=== PATIENT | male | born 1965 | race African-American/Black ===

== ENCOUNTER 2017-12-22 18:18 | Emergency (ER) | payer MEDICARE, OTHER ==
[~2017-12-22] VITALS: Ht 172.7 cm; Wt 68.0 kg
[2017-12-22] MEDS ORDERED: CARBAMAZEPINE200 M4 ORAL (18:25)
[2017-12-22] MEDS ORDERED: UNOBMED (18:25)
[2017-12-22] MEDS ORDERED: DEPAKOTE ER250 MG ORAL (18:25)
[2017-12-22] MEDS ORDERED: ZYPREXA10 MG ORAL (18:25)
[2017-12-22] MEDS ORDERED: LORazepam Inj 2mg/ml 1ml IV ONE ×2 (18:30→20:00)
[2017-12-22 18:56] LABS: HEMATOCRIT 41.2 % (42.0-52.0); HEMOGLOBIN 13.4 G/DL (14.2-18.0); MEAN CORPUSCULAR VOLUME 101 FL (80-99); PLATELET COUNT 173 K/UL (150-450); RED BLOOD COUNT 4.08 M/UL (4.70-6.10); RED CELL DISTRIBUTION WIDTH 12.9 % (11.6-14.8); WHITE BLOOD COUNT 7.9 K/UL (4.8-10.8)
--- NOTE | 2017-12-22 19:06 | Emergency Room Report ---
History of Present Illness General Chief Complaint: Seizure Source: EMS Present Illness HPI 52-year-old male presents ED for evaluation. Per EMS patient had a seizure at home. Witnessed by sister. Patient was on the floor. No head injury. Last for 2-3 minutes. Upon arrival patient is post ictal. Lethargic. Patient has psychiatric history and history of seizures. Takes Tegretol and Depakote. No to provide any additional history at this time. No signs of distress. No other aggravating relieving factors. No other associated symptoms Allergies: Coded Allergies: No Known Allergies (Unverified , 12/22/17) Patient History Past Medical History: seizures, psych hx Past Surgical History: none Pertinent Family History: none Social History: Denies: smoking, alcohol use, drug use Immunizations: UTD Reviewed Nursing Documentation: PMH: Agreed, PSxH: Agreed Nursing Documentation-PMH History Of Psychiatric Problem: Yes - Unable to access psych hx. Hx Seizures: Yes Review of Systems All Other Systems: negative except mentioned in HPI Physical Exam Vital Signs Date Time Temp Pulse Resp B/P (MAP) Pulse Ox O2 Delivery O2 Flow Rate FiO2 12/22/17 18:11 98.9 114 20 132/83 100 Room Air 99.0 12/22/17 18:25 2.0 95 Sp02 EP Interpretation: reviewed, normal General Appearance: no apparent distress, Postictal Head: normocephalic Eyes: bilateral eye normal inspection, bilateral eye PERRL ENT: hearing grossly normal Neck: normal inspection Respiratory: chest non-tender, lungs clear, normal breath sounds, speaking full sentences Cardiovascular #1: regular rate, rhythm, no edema Gastrointestinal: normal bowel sounds, non tender, soft, non-distended, no guarding, no rebound Rectal: deferred Genitourinary: no CVA tenderness Musculoskeletal: normal inspection Neurologic: motor weakness - not moving LUE and LLE, other - postictal Psychiatric: other - postictal Skin: normal inspection Lymphatic: normal inspection Procedures Critical Care Time Critical Care Time i. I feel this is a highly complex case requiring extensive working including EKG/Rhythm strip, Xray/CT/US, Blood/urine lab work, repeat exams while in ED, and administration of strong opiates/narcotics for pain control, admission to hospital or close patient follow up. Total time: 30 min bedside evaluation and treatment excludes procedures (EKG). Reason for critical care: Altered, seizure, left sided weakness Possible complications: hypotension, hypertension, ND, shock, arrhythmias, metabolic acidosis, end organ damage, respiratory failure. Interventions: Labs, IV fluids, Ativan, Depakote. CT head. Consultation with stroke team at [facility]. Rectal aspirin. Course: Patient presenting with altered middle status status post seizure. History of seizure. Depakote and Tegretol level subtherapeutic. A call greater than 218. Patient given Ativan. Patient started showing twitching on the right side but no activity on the left side. CT head shows possible right MCA thrombus concerning for stroke. Unknown last well time. Given rectal aspirin. Protecting airway. Will be transferred to [facility] Consultations: nursing staff, EMS, family Performed by: Dr Clemons Tolerated well condition = critical j. because of unstable vital signs this patient had a condition that could potentially threaten life or limb. I feel this is a critical patient who required my full attention while patient was considered critical. Total Critical Care Time excluding procedures was greater than 35 minutes Medical Decision Making Diagnostic Impression: Primary Impression: Seizure disorder Additional Impressions: CVA (cerebral vascular accident) Qualified Codes: I63.311 - Cerebral infarction due to thrombosis of right middle cerebral artery Alcohol intoxication Qualified Codes: F10.921 - Alcohol use, unspecified with intoxication delirium ER Course Hospital Course 52-year-old male presents ED with lethargy, post ictal after seizure. History of seizure Differential diagnoses include: ND/unstable angina, SVT/Vtach/AFib, CVA/TIA Clinical course Patient placed on stretcher. on school lunch monitor. After initial history and physical I ordered labs, IVFs, ativan labs reviewed- electrolytes ok, no leukocytosis, hb/hct stable, ETOH > 200, depakote and tegretol levels subtherapeutic Given Depakote IV Patient showing twitching activity of his right upper lower extremities. No activity on the left. Possible Davie's paralysis. However CT head ordered CT brain - concern for thrombus in the right MCA Discussed case with [facility]. Given unknown last well-known time not a candidate for thrombolytic therapy. Patient protecting airway therefore patient will not be intubated Given rectal aspirin EKG-normal sinus rhythm no acute ischemic changes interpreted by me I. I feel this is a highly complex case requiring extensive working including EKG/Rhythm strip, Xray/CT/US, Blood/urine lab work, repeat exams while in ED, and administration of strong opiates/narcotics for pain control, admission to hospital or close patient follow up. Diagnosis - seizure disorder, alcohol intoxication, CVA Transfer to [facility] in critical condition Labs Test 12/22/17 18:15 12/22/17 18:45 12/22/17 19:05 White Blood Count 7.9 K/UL (4.8-10.8) Red Blood Count 4.08 M/UL (4.70-6.10) Hemoglobin 13.4 G/DL (14.2-18.0) Hematocrit 41.2 % (42.0-52.0) Mean Corpuscular Volume 101 FL (80-99) Mean Corpuscular Hemoglobin 32.7 PG (27.0-31.0) Mean Corpuscular Hemoglobin Concent 32.4 G/DL (32.0-36.0) Red Cell Distribution Width 12.9 % (11.6-14.8) Platelet Count 173 K/UL (150-450) Mean Platelet Volume 6.4 FL (6.5-10.1) Neutrophils (%) (Auto) % (45.0-75.0) Lymphocytes (%) (Auto) % (20.0-45.0) Monocytes (%) (Auto) % (1.0-10.0) Eosinophils (%) (Auto) % (0.0-3.0) Basophils (%) (Auto) % (0.0-2.0) Differential Total Cells Counted 100 Neutrophils % (Manual) 86 % (45-75) Lymphocytes % (Manual) 9 % (20-45) Monocytes % (Manual) 5 % (1-10) Eosinophils % (Manual) 0 % (0-3) Basophils % (Manual) 0 % (0-2) Band Neutrophils 0 % (0-8) Platelet Estimate Adequate Platelet Morphology Normal Red Blood Cell Morphology Normal Sodium Level 139 MMOL/L (136-145) Potassium Level 4.4 MMOL/L (3.5-5.1) Chloride Level 104 MMOL/L (98-107) Carbon Dioxide Level 24 MMOL/L (21-32) Anion Gap 11 mmol/L (5-15) Blood Urea Nitrogen 7 mg/dL (7-18) Creatinine 1.0 MG/DL (0.55-1.30) Estimat Glomerular Filtration Rate > 60 mL/min (>60) Glucose Level 101 MG/DL (74-106) Calcium Level 8.8 MG/DL (8.5-10.1) Total Bilirubin 0.5 MG/DL (0.2-1.0) Aspartate Amino Transf (AST/SGOT) 33 U/L (15-37) Alanine Aminotransferase (ALT/SGPT) 26 U/L (12-78) Alkaline Phosphatase 81 U/L (46-116) Total Protein 8.1 G/DL (6.4-8.2) Albumin 4.1 G/DL (3.4-5.0) Globulin 4.0 g/dL Albumin/Globulin Ratio 1.0 (1.0-2.7) Salicylates Level 6.6 ug/mL (2.8-20) Acetaminophen Level < 2 MCG/ML (10-30) Valproic Acid (Depakene) Level < 3 MCG/ML (50-100) Carbamazepine (Tegretol) Level < 0.5 ug/mL (4.0-12.0) Serum Alcohol 218 mg/dL Urine Opiates Screen Negative (NEGATIVE) Urine Barbiturates Screen Negative (NEGATIVE) Phencyclidine (PCP) Screen Negative (NEGATIVE) Urine Amphetamines Screen Negative (NEGATIVE) Urine Benzodiazepines Screen Negative (NEGATIVE) Urine Cocaine Screen Negative (NEGATIVE) Urine Marijuana (THC) Screen Negative (NEGATIVE) EKG Diagnostic Results Rate: normal Rhythm: NSR ST Segments: no acute changes ASA given to the pt in ED: No Rhythm Strip Diag. Results EP Interpretation: yes Rhythm: NSR, no PVC's, no ectopy CT/MRI/US Diagnostic Results CT/MRI/US Diagnostic Results : Imaging Test Ordered: CT Head Impression possible R MCA Thrombus. concern for stroke Last Vital Signs Date Time Temp Pulse Resp B/P (MAP) Pulse Ox O2 Delivery O2 Flow Rate FiO2 12/22/17 18:25 102 19 Nasal Cannula 2.0 95 12/22/17 18:11 98.9 132/83 100 99.0 Status: improved Disposition: XFER SHT-TRM HOSP Condition: Critical CALIN CLEMONS M.D. Dec 22, 2017 19:06
[2017-12-22 19:11] LABS: ANION GAP 11 mmol/L (5-15); BLOOD UREA NITROGEN 7 mg/dL (7-18); CALCIUM 8.8 MG/DL (8.5-10.1); CARBON DIOXIDE 24 MMOL/L (21-32); CHLORIDE 104 MMOL/L (98-107); POTASSIUM 4.4 MMOL/L (3.5-5.1); SODIUM 139 MMOL/L (136-145)
[2017-12-22 19:15] LABS: ALANINE AMINOTRANSFERASE 26 U/L (12-78); ALBUMIN 4.1 G/DL (3.4-5.0); ALKALINE PHOSPHATASE 81 U/L (46-116); ASPARTATE AMINO TRANSFERASE 33 U/L (15-37); BILIRUBIN,TOTAL 0.5 MG/DL (0.2-1.0)
[2017-12-22 19:20] VITALS: BP 117/101
[2017-12-22] MEDS ORDERED: Valproate Sodium INJ 500 MG in NS 55 ML IV ONE (19:45)
[2017-12-22 20:34] VITALS: BP 116/56
[2017-12-22 21:12] VITALS: BP 118/70
[2017-12-22 21:26] LABS: INR 0.9 (0.9-1.1)
[2017-12-22 21:38] VITALS: BP 118/70
--- NOTE | 2017-12-23 09:42 | Diagnostic Imaging Report ---
Indication: Altered mental status Technique: Continuous helical CT scanning of the head was performed utilizing automated exposure control without intravenous contrast material. Axial and coronal reconstructions were obtained. Comparison: None CT dose: Total DLP 1270 mGycm; CTDI vol 70.38 mGy Findings: There is no evidence for acute intracranial hemorrhage. No significant mass effect or midline shift. There is question of some increased density in the right middle cerebral artery (series 3 image 12). Thrombus cannot be excluded. Question some loss of fallon-white differentiation in the right basal ganglia and right cerebral hemisphere with possible asymmetric sulcal effacement. Mastoid air cells are clear. There is moderate mucosal thickening affecting the paranasal sinuses. No depressed skull fracture identified. IMPRESSION: Question increased density in the right middle cerebral artery. Thrombus not excluded. Possible loss of fallon-white differentiation on the right as above. Acute infarct not excluded. Correlation with clinical findings is recommended. MRI or CT angiogram recommended for more sensitive evaluation as clinically indicated. This corresponds with the [facility] preliminary report. Please note patient identifier discrepancy on preliminary report. This was corrected on the final report. The CT scanner at [facility] is accredited by the [employer] and the scans are performed using protocols designed to limit radiation exposure to as low as reasonably achievable to attain images of sufficient resolution adequate for diagnostic evaluation.
== END 2017-12-22 21:30 | disposition short-term general hospital (02) ==
LOC: EDBD 18:18 → EMR 18:30
DX: G40.909 Epilepsy, unspecified, not intractable, without status epilepticus (principal); F10.129 Alcohol abuse with intoxication, unspecified; I63.9 Cerebral infarction, unspecified
CPT/HCPCS: 36415; 70450; 80053; 80156; 80164; 80307; 82962; 85007; 85025; 85610; 85730; 96361; 96365; 96375; 96376; 99285; G0480; 80329